=== PATIENT | male | born 1945 | race Caucasian/White ===

== ENCOUNTER 2017-08-18 00:05 | Emergency (ER) | payer OTHER ==
[~2017-08-18] VITALS: Ht 167.6 cm; Wt 73.3 kg
[2017-08-18 00:59] LABS: APPEARANCE CLEAR ((CLEAR)); BILIRUBIN NEGATIVE; BLOOD LARGE; COLOR AMBER ((YELLOW)); GLUCOSE (STRIP) NEGATIVE; KETONES NEGATIVE; LEUKOCYTES MODERATE; NITRITE POSITIVE; PROTEIN (STRIP) 30; SPECIFIC GRAVITY 1.008 (1.000-1.030)
[2017-08-18 01:03] LABS: BACTERIA RARE /HPF; EPITHELIAL CELLS NONE SEEN /HPF; MUCUS TRACE /LPF; RED BLOOD CELLS TNTC /HPF (0-5); UCUL ADDED? YES; WHITE BLOOD CELLS TNTC /HPF (0-5)
[2017-08-18 01:05] LABS: BASOPHIL (%) 0.4 % (0-1); EOSINOPHIL (%) 1.9 % (0-5); EOSINOPHIL COUNT 0.1 K/uL (0-0.3); HEMATOCRIT 38.1 % (38.0-50.0); HEMOGLOBIN 13.2 G/DL (12.5-16.6); IMMATURE GRANULOCYTE (%) 0.3 % (0.0-0.7); LYMPHOCYTE (%) 7.8 % (15-42); LYMPHOCYTE COUNT 0.6 K/uL (1.0-2.8); MCH 35.3 PG (29.0-34.0); MCHC 34.6 G/DL (30.0-36.0); MCV 101.9 FL (86-99); MONOCYTE (%) 11.1 % (3-12); MONOCYTE COUNT 0.8 K/uL (0-0.8); NEUTROPHIL (%) 78.5 % (45-76); NEUTROPHIL COUNT 5.5 K/uL (1.8-6.4); PLATELET COUNT 197 K/uL (156-360); RBC DIS.WIDTH-CV 11.8 % (11.8-14.6); RBC DIS.WIDTH-SD 44.3 % (39-53); RED BLOOD COUNT 3.74 M/uL (4.00-5.50)
[2017-08-18 01:19] LABS: CHLORIDE 103 mEq/L (99-109); SODIUM 139 mEq/L (136-147)
[2017-08-18 01:20] LABS: GLUCOSE 115 mg/dL (70-99)
[2017-08-18 01:24] LABS: CREATININE 1.1 mg/dL (0.6-1.3); GFR ESTIMATE (CALCULATED) > 59 mL/min/ (58.99-99999)
[2017-08-18 01:25] LABS: UREA NITROGEN (BUN) 17 mg/dL (9-23)
[2017-08-18] MEDS ORDERED: PYRIDIUM100 MG PO (03:03)
[2017-08-18] MEDS ORDERED: KEFLEX500 MG PO (03:03)
[2017-08-18] MEDS ORDERED: ULTRACET1 TABLET PO (03:03)
[2017-08-18 03:19] VITALS: BP 138/84
[2017-08-18] MEDS ORDERED: ZOFRAN ODT4 MG PO (22:53)
== END 2017-08-18 03:21 | disposition home or self-care (01) ==
LOC: EXP 00:05 → EME 00:05 → EXP 03:21
PROVIDERS: Physician Assistant
DX: N30.91 Cystitis, unspecified with hematuria (principal); N21.0 Calculus in bladder; R93.49 Abnormal radiologic findings on diagnostic imaging of other urinary organs; Z87.438 Personal history of other diseases of male genital organs; Z90.79 Acquired absence of other genital organ(s)
CPT/HCPCS: 74177; 80048; 81003; 83605; 85025; 87040; 87077; 87086; 87186; 99281; 99284; J0696; J7040

== ENCOUNTER 2017-08-18 20:17 | Emergency (ER) | payer OTHER ==
[~2017-08-18] VITALS: Ht 167.6 cm; Wt 72.6 kg
[~2017-08-18 20:17] MED LIST: KEFLEX500 MG PO; PYRIDIUM100 MG PO; ULTRACET1 TABLET PO
[2017-08-18 21:24] LABS: HEMATOCRIT 36.3 % (38.0-50.0); HEMOGLOBIN 12.5 G/DL (12.5-16.6); MCH 35.2 PG (29.0-34.0); MCHC 34.4 G/DL (30.0-36.0); MCV 102.3 FL (86-99); PLATELET COUNT 185 K/uL (156-360); RBC DIS.WIDTH-CV 11.8 % (11.8-14.6); RED BLOOD COUNT 3.55 M/uL (4.00-5.50); WHITE BLOOD COUNT 7.5 K/uL (4.1-10.2)
[2017-08-18 21:34] LABS: ALBUMIN 3.6 g/dL (3.2-4.8); CHLORIDE 100 mEq/L (99-109); POTASSIUM 4.2 mEq/L (3.7-5.4); SODIUM 134 mEq/L (136-147)
[2017-08-18 21:36] LABS: TOTAL PROTEIN 7.1 g/dL (6.4-8.3)
[2017-08-18 21:38] LABS: TOTAL BILIRUBIN 0.5 mg/dL (0.0-1.0)
[2017-08-18 21:40] LABS: ALKALINE PHOSPHATASE 55 IU/L (3-129)
[2017-08-18 21:45] LABS: CREATININE 1.1 mg/dL (0.6-1.3); GFR ESTIMATE (CALCULATED) > 59 mL/min/ (58.99-99999)
[2017-08-18 21:46] LABS: UREA NITROGEN (BUN) 13 mg/dL (9-23)
[2017-08-18 21:47] LABS: AST (GOT) 23 IU/L (2-34); GLUCOSE 112 mg/dL (70-99)
[2017-08-18 21:48] LABS: ALT (GPT) 19 IU/L (3-49)
[2017-08-18] MEDS ORDERED: ZOFRAN ODT4 MG PO (22:53)
[2017-08-18 23:11] VITALS: BP 146/80
== END 2017-08-18 23:15 | disposition home or self-care (01) ==
LOC: EME 20:17
PROVIDERS: Physician Assistant
DX: R11.2 Nausea with vomiting, unspecified (principal); T36.1X5A Adverse effect of cephalosporins and other beta-lactam antibiotics, initial encounter; Z87.440 Personal history of urinary (tract) infections; Z98.890 Other specified postprocedural states; Z90.79 Acquired absence of other genital organ(s)
CPT/HCPCS: 80053; 81003; 83605; 85027; 87040; 99281; 99285; J1200; J2405; J2765; J7030